=== PATIENT | female | born 1945 | race Caucasian/White ===

== ENCOUNTER → 2017-12-06 | Outpatient (CLI) | payer MEDICARE, OTHER ==
--- NOTE | 2017-12-06 14:09 | Diagnostic Imaging Report ---
PROCEDURE:ABDOMEN-1VIEW (KUB) TECHNIQUE:Supine AP abdomen INDICATION:Followup renal stone COMPARISON:[facility], DX, ABDOMEN-1VIEW (KUB), 07/12/2017, 9:33. Patients [facility], US, US RETROPERITONEAL ( KIDNEY )., 07/12/2017, 10:06. FINDINGS: See conclusion. CONCLUSION: 1. No calcifications over the kidneys or ureters. 2. Small left pelvic phleboliths. Costochondral calcifications not unexpected for patient age. 3. Normal bowel gas pattern. No evidence of organomegaly or ascites. Dictated by: Emir Walker M.D. on 12/06/2017 at 14:10 Electronically approved by: Emir Walker M.D. on 12/06/2017 at 14:10
== END ==
LOC: RAD 12:01
PROVIDERS: ATTEND Urology
DX: N20.0 Calculus of kidney (principal)
CPT/HCPCS: 74018

== ENCOUNTER → 2018-06-13 | Outpatient (CLI) | payer MEDICARE, OTHER ==
--- NOTE | 2018-06-13 13:46 | Diagnostic Imaging Report ---
Exam: KUB. Clinical History: Calculus of kidney Comparison: None Findings: Frontal view of the abdomen demonstrates a nonobstructive bowel gas pattern with moderate retained stool. Punctate calcifications are seen over the left kidney. Small calcifications are seen over the right kidney.No acute bone abnormality. Impression: Punctate calcifications are seen over the left kidney. Small calcifications are seen over the right kidney Signed by: Dr. Chris Mora M.D. on 06/13/2018 1:42 PM
== END ==
LOC: RAD 12:36
PROVIDERS: ATTEND Urology
DX: N20.0 Calculus of kidney (principal)
CPT/HCPCS: 74018

== ENCOUNTER → 2018-12-28 | Outpatient (CLI) | payer MEDICARE, OTHER ==
--- NOTE | 2018-12-28 15:12 | Diagnostic Imaging Report ---
Abdomen, 1 view. History: Renal calculus. Comparison: 06/13/2018. Findings: Air is scattered throughout nondilated small and large bowel. Calcifications are projected over both kidneys, measuring 5 mm on the right and 6 mm on the left, unchanged. There are no masses. The osseous structures are intact. IMPRESSION: Non-specific bowel gas pattern. Bilateral calcifications without change. Signed by: Júnior Gracia on 12/28/2018 3:08 PM
== END ==
LOC: RAD 14:34
PROVIDERS: ATTEND Urology
DX: N20.0 Calculus of kidney (principal)
CPT/HCPCS: 74018

== ENCOUNTER → 2019-01-12 | Outpatient (CLI) | payer MEDICARE, OTHER ==
--- NOTE | 2019-01-12 17:21 | Diagnostic Imaging Report ---
EXAM: CT ABDOMEN AND PELVIS without IV CONTRAST DATE: 01/12/2019 Time stamp on Exam: 1:42 PM INDICATION: Hematuria COMPARISON: None TECHNIQUE: The abdomen and pelvis were scanned using a multidetector helical scanner. Coronal and sagittal reformations were obtained. Low-dose renal stone protocol was utilized. Technique modification to maintain the lowest dose possible to the patient was accomplished. IV Contrast: None Oral Contrast: None Radiation Dose: Total DLP 235.81 mGy*cm Estimated effective dose: DLP x 0.015 x size factor FINDINGS: LOWER THORAX: No consolidations LIVER: No masses BILIARY: The gallbladder is unremarkable. No ductal dilatation. SPLEEN: No masses PANCREAS: No masses ADRENALS: No nodules KIDNEYS: No hydronephrosis. There is a 3-4 mm nonobstructing left upper pole renal stone. GI TRACT: No distention, wall thickening or evidence of obstruction. VESSELS: Scattered vascular calcification. PERITONEUM/RETROPERITONEUM: No free air or fluid LYMPH NODES: No lymphadenopathy REPRODUCTIVE ORGANS: Unremarkable BLADDER: Bladder appears unremarkable. Pelvic calcification likely represents phleboliths. SOFT TISSUES: Unremarkable BONES: No suspicious bone lesions. Degenerative changes of the spine. IMPRESSION: Nonobstructing small left upper pole renal stone. Signed by: Dr. Jonathan Guerra DO on 01/12/2019 5:18 PM
== END ==
LOC: CT 12:43
PROVIDERS: ATTEND Urology
DX: N20.0 Calculus of kidney (principal)
CPT/HCPCS: 74176

== ENCOUNTER → 2019-03-07 | Day surgery (SDC) | payer MEDICARE, OTHER ==
--- NOTE | 2019-02-26 15:03 | Diagnostic Imaging Report ---
EXAMINATION: CHEST 2 VIEWS INDICATION: Pre-operative COMPARISON: None FINDINGS: TUBES and LINES: None. LUNGS: The lungs are mildly hyperinflated. No focal consolidation or pulmonary edema. PLEURA: No pleural effusion or pneumothorax. HEART AND MEDIASTINUM: The cardiomediastinal silhouette is normal in size and contour. BONES AND SOFT TISSUES: No acute fracture or dislocation. Sclerotic osseous lesion at the proximal left humerus with ring and arc chondroid appearing matrix is likely clinically insignificant. UPPER ABDOMEN: No free air under the diaphragm. IMPRESSION: No focal pneumonia or pulmonary edema. Signed by: Maria De Jesus Ashby MD on 02/26/2019 2:59 PM
[2019-02-26 15:45] LABS: BASOPHILS % 0.5 % (0.0-1.0); EOSINOPHILS # (AUTO) 0.1 (0.0-0.4); HEMOGLOBIN 13.3 g/dL (12.0-16.0); LYMPHOCYTES # (AUTO) 1.1 (1.0-3.2); LYMPHOCYTES % 28.1 % (18.0-39.1); MEAN CORPUSCULAR HEMOGLOBIN 28.2 pg (28-32); MEAN CORPUSCULAR HGB CONC 32.4 g/dL (31-35); MONOCYTES # (AUTO) 0.3 (0.2-0.8); MONOCYTES % 6.4 % (4.4-11.3); NEUTROPHILS # (AUTO) 2.5 (2.1-6.9); NEUTROPHILS % 62.7 % (38.7-80.0); PLATELET COUNT 214 x10e3/uL (140-360); RED BLOOD COUNT 4.71 x10e6/uL (3.6-5.1); RED CELL DISTRIBUTION WIDTH 14.2 % (11.7-14.4)
[~2019-03-07] MED LIST: B&O 60MG R/S 60 MG SUPP PR ONE; CALCIUM; CEFTRIAXONE SOD 1 GM/NS 50 ML 50 ML IV ONE; DEXAMETHASONE SOD PHOS INJ 4 MG/ML VIAL ONE; EYE PROMISE OP; EYE PROMISE PO; GABAPENTIN300 MG PO; IOPAMIDOL 610MG/1ML 300 MG/ML VIAL IV ONE; LEVOTHYROXINE100 MC1 PO; LEXAPRO10 MG PO; LIDOCAINE HCL 2% LOCAL INJ 5 ML SDV VIAL INJ ONE; LORATADINE10 MG PO; MIDAZOLAM HCL 2 MG/2 ML VIAL ONE; MULTIVITAMINS1 EAC7; ONDANSETRON HCL INJ 2MG/ML 2ML 2 MG/ML VIAL ONE; OXYBUTYNIN CHLOR5 MG PO; PROPOFOL IV EMULSION 10 MG/ML 20 ML VIAL ONE; SEVOFLURANE INHAL SOLN 250 ML PEN BTL ONE; TURMERIC1 GM; VITAMIN C500 M4; VITAMIN D32000 UNI1
--- OUTSIDE RECORDS SUMMARY | 2019-03-07 05:11 | XMS REPORT | Clinical Summary ---
Author Author Ayala [facility] Organization [facility] Address Unknown Phone Unavailable Care Team Providers Care Drop Man Name Role Phone Kj Crump MD PCP Unavailable Allergies No Known Allergies Medications End Date Status Medication Sig Dispensed Refills Start Date Active escitalopram (LEXAPRO) 10 Take 10 mg by 0 MG tablet mouth daily. 5 Active oxybutynin (DITROPAN) 5 Take 5 mg by 3 MG tablet mouth 2 (two) 7 times a day. Active multivitamin (THERAGRAN) Take 1 tablet 0 tablet by mouth daily. Active gabapentin (NEURONTIN) Take 1,200 mg 0 600 mg tablet by mouth nightly. Active levothyroxine (SYNTHROID, Take 100 mcg 0 LEVOXYL) 100 mcg tablet by mouth. 9 03/31/2018 Discontinued levothyroxine (SYNTHROID, Take 1 tablet 30 tablet 0 LEVOXYL) 88 mcg tablet (88 mcg 8 total) by mouth daily for 30 days. 04/06/2018 acetaminophen-codeine Take 1-2 25 tablet 0 (TYLENOL WITH CODEINE #3) tablets by 8 300-30 mg per tablet mouth every 4 (four) hours as needed for moderate pain for up to 7 days. 04/29/2018 ondansetron (ZOFRAN) 4 MG Take 1 tablet 20 tablet 0 tablet (4 mg total) 8 by mouth every 8 (eight) hours as needed for nausea or vomiting for up to 30 days. 04/07/2018 acetaminophen-codeine Take 1 tablet 30 tablet 0 (TYLENOL WITH CODEINE #3) by mouth 8 300-30 mg per tablet every 4 (four) hours as needed for moderate pain for up to 7 days. 04/30/2018 docusate sodium (COLACE) Take 1 60 capsule 0 100 MG capsule capsule (100 8 mg total) by mouth 2 (two) times a day for 30 days. 04/30/2018 levothyroxine (SYNTHROID, Take 1 tablet 30 tablet 0 LEVOXYL) 88 mcg tablet (88 mcg 8 total) by mouth daily for 30 days. 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 Encounters Care Team Description Date Type Specialty Lynette Cooper MD Papanicolaou smear (Primary Dx); Screening for human papillomavirus; Screening for breast cancer 09/19/2018 Office Visit Obstetrics and Gynecology Rosendo Britt MD Postsurgical hypothyroidism (Primary Dx) 04/06/2018 Lab Lab Yohana Waterman NP 03/29/2018 Anesthesia Plastic Surgery Event Rosendo Britt MD RIGHT THYROID LOBECTOMY POSSIBLE TOTAL THYROIDECTOMY 03/29/2018 Surgery Plastic Surgery Rosendo Britt MD Nontoxic multinodular goiter 03/29/2018 [facility] General Internal Medicine - Encounter 03/31/2018 Rosendo Britt MD Preop testing (Primary Dx) 03/15/2018 Pre-Admit Pre-Admission Testing Testing Appointment after 03/06/2018 Family History Medical History Relation Name Comments Colon cancer Father Prostate cancer Father Heart disease Maternal Grandfather Lymphoma Mother Heart disease Paternal Grandfather Heart disease Paternal Grandmother Relation Name Status Comments Father Maternal Grandfather Mother Paternal Grandfather Paternal Grandmother Social History Date Tobacco Use Types Packs/Day Years Used Never Smoker Smokeless Tobacco: Never Used Alcohol Use Drinks/Week oz/Week Comments Yes 1 Standard 0.6 <1/WEEK drinks or equivalent Sex Assigned at Date Recorded Not on file Industry Job Start Date Occupation Not on file Not on file Not on file Travel End Travel History Travel Start No recent travel history available. Last Filed Vital Signs Time Taken Vital Sign Reading 09/19/2018 9:26 AM [employer] Blood Pressure 131/80 09/19/2018 9:26 AM [employer] Pulse 67 03/31/2018 7:56 AM CDT Temperature 37.1 C (98.8 F) 03/31/2018 7:56 AM CDT Respiratory Rate 16 03/31/2018 7:56 AM CDT Oxygen Saturation 95% - Inhaled Oxygen - Concentration 09/19/2018 9:26 AM [employer] Weight 59.4 kg (131 lb) 09/19/2018 9:26 AM [employer] Height 169.5 cm (5' 6.75") 09/19/2018 9:26 AM [employer] Body Mass Index 20.67 Plan of Treatment Health Maintenance Due Date Last Done Comments BREAST CANCER SCREENING 1995 COLONOSCOPY SCREENING 1995 65+ PNEUMOCOCCAL VACCINE 2010 (1 of 2 - PCV13) SHINGLES VACCINES (#2) 09/20/2018 07/20/2018 INFLUENZA VACCINE 03/08/2019 06/13/2012 Procedures Comments Procedure Name Priority Date/Time Associated Diagnosis HPV MRNA E6/E7 REFLEX TO Routine 09/19/2018 HPV 16, 18/45 9:55 AM [employer] THINPREP TIS PAP Routine 09/19/2018 Papanicolaou smear 9:55 AM [employer] CALCIUM LEVEL Routine 04/06/2018 Postsurgical 9:40 AM CDT hypothyroidism THYROID STIMULATING Routine 04/06/2018 Postsurgical HORMONE 9:40 AM CDT hypothyroidism CALCIUM LEVEL Routine 03/30/2018 2:52 AM CDT PARATHYROID HORMONE Routine 03/30/2018 2:42 AM CDT CALCIUM LEVEL Routine 03/29/2018 3:30 PM CDT PHOSPHORUS LEVEL Routine 03/29/2018 3:30 PM CDT ALBUMIN LEVEL Routine 03/29/2018 3:30 PM CDT PHOSPHORUS LEVEL Routine 03/29/2018 3:05 PM CDT PARATHYROID HORMONE Routine 03/29/2018 3:05 PM CDT CALCIUM LEVEL Routine 03/29/2018 3:05 PM CDT ALBUMIN LEVEL Routine 03/29/2018 3:05 PM CDT SURGICAL PATHOLOGY Routine 03/29/2018 REQUEST 2:16 PM CDT OR AN ELECTIVE Routine 03/29/2018 ENDOTRACHEAL AIRWAY 12:34 PM CDT Procedure Note - Emilia Edmondson, MOTOR VEHICLE LECTURER - 03/29/2018 12:34 PM CDT Airway Date/Time: 03/29/2018 10:36 AM Performed by: EMILIA EDMONDSON Authorized by: SEFERINO MCQUEEN Location: OR Urgency: Elective Difficult Airway: No Anesthesio logist: SEFERINO MCQUEEN Performed by: anesthesio logist and resident/C RNA/AA Preoxygena ba with 100% O2: Yes C-spine Precaution s Maintained Throughout : Yes Mask Ventilatio n: Easy mask Final Airway Type: Endotrache al airway Final Endotrache al Airway: ETT and reinforced tube Technique Used: Direct laryngosco py Devices/Me thods Used in Placement: Intubatin g stylet Insertion Site: Oral Blade Type: Marsh Laryngosco pe Blade/Vide olaryngosc ope Blade Size: 2 ETT Size (mm): 6.0 Measured from: Teeth ETT to Teeth (cm): 22 Placement Verified by: CO2 detection, direct visualizat ion and equal breath sounds Laryngosco pic view: Grade I - full view of glottis Rapid Sequence Induction (RSI): No Modified RSI: No Number of Attempts at Approach: 2 The surgical team requested after induction that their 4th year med student be allowed to participat e and learn in the mask ventilatio n and intubation of this patient. I have helped teach her on three previous patients. Verifying that they had informed patient that med students and residents would be part of her care we proceeded. The med student had some difficulty adjusting the laryngosco pe to lift the epiglottis before successful intubation . A small amount of blood was noted in the Marsh 2 blade and investigat ion with tongue depressor by Chief resident revealed small trauma to right side alveolar ridge, slight bleeding stopped with light pressure on gauze. MD SHERRI THYROIDECTOMY, TOTAL 03/29/2018 Nontoxic multinodular 9:35 AM CDT goiter Special Needs POSSIBLE EXTENDED RECOVERY NEEDED ECG PRE/POST OP Routine 03/15/2018 Preop testing 10:55 AM CDT ZZESTIMATED GFR Routine 03/15/2018 10:54 AM CDT COMPREHENSIVE METABOLIC Routine 03/15/2018 Preop testing PANEL 10:54 AM CDT HC COMPLETE BLD COUNT Routine 03/15/2018 Preop testing W/AUTO DIFF 10:54 AM CDT after 03/06/2018 Results * HPV mRNA E6/E7 REFLEX TO HPV 16, 18/45 (09/19/2018 9:55 AM [employer]) HPV mRNA e6/e7 Not Detected Not Detected [facility] Comment: DIAGNOSTICS This test was performed using [place] the APTIMA HPV Assay ([employer] This assay detects E6/E7 viral messenger RNA (mRNA) from 14 high-risk HPV types (16,18,31,33,35,39,45,51,52,56 ,58,59,66,68). The analytical performance characteristics of this assay have been determined by [employer]. The modifications have not been cleared or approved by the FDA. This assay has been validated pursuant to the CLIA regulations and is used for clinical purposes. Specimen Resulting Agency Comment Performing Organization Information: Site ID: [id number] Name: [facility] Address: [address] [place] [phone] Director: Myrna Garcia Performing Organization Address City/State/Zipcode Phone Number [facility] [place] [address] * THINPREP TIS PAP (09/19/2018 9:55 AM [employer]) Clinical None given [facility] information [employer] [place] Date of last NONE GIVEN [facility] menstrual DIAGNOSTICS period [place] Prev. pap: NONE GIVEN [employer] [place] Prev. bx: NONE GIVEN [facility] DIAGNOSTICS [place] Source None given [employer] [place] Statement of Comment: [facility] adequacy Satisfactory for evaluation. DIAGNOSTICS Endocervical/transformation [place] zone component absent. Interpretation/ Comment: [facility] result: Negative for intraepithelial DIAGNOSTICS lesion or malignancy. AYALA Atrophic pattern; predominantly parabasal cells Comment Comment: [facility] This Pap test has been DIAGNOSTICS evaluated with computer My Digital Shield technology. [employer] Comment: [facility] t JGM, CT(ASCP) DIAGNOSTICS CT screening location: [place] [address] Comment Comment: [facility] EXPLANATORY NOTE: DIAGNOSTICS The Pap is a screening test [place] for cervical cancer. It is not a diagnostic test and is subject to false negative and false positive results. It is most reliable when a satisfactory sample, regularly obtained, is submitted with relevant clinical findings and history, and when the Pap result is evaluated along with historic and current clinical information. Specimen Swab Resulting Agency Comment Performing Organization Information: Site ID: [id number] Name: [facility] Address: [address] [place] [id number] Director: Myrna Garcia Performing Organization Address City/[facility] [place] [place] [address] * Thyroid stimulating hormone (04/06/2018 9:40 AM CDT) TSH 1.13 0.27 - 4.20 uIU/mL [facility] DEPARTMENT OF PATHOLOGY AND GENOMIC MEDICINE Specimen Plasma specimen Performing Organization Address [facility] Phone Number [facility] [place] [address] PATHOLOGY AND [employer] [facility] * Calcium level (04/06/2018 9:40 AM CDT) Only the most recent of 4 results within the time period is included. Calcium 9.9 8.8 - 10.2 mg/dL [facility] DEPARTMENT OF PATHOLOGY AND GENOMIC MEDICINE Specimen Plasma specimen Performing Organization Address [facility] Phone Number [facility] [place] [address] PATHOLOGY AND [facility] * Parathyroid hormone (03/30/2018 2:42 AM CDT) Only the most recent of 2 results within the time period is included. PTH 37 15 - 65 pg/mL [facility] DEPARTMENT OF PATHOLOGY AND GENOMIC MEDICINE Specimen Blood Performing Organization Address [facility] Phone Number [facility] [place] [address] [facility] MEDICINE * Phosphorus level (03/29/2018 3:30 PM CDT) Only the most recent of 2 results within the time period is included. Phosphorus 3.2 2.4 - 4.5 mg/dL [facility] DEPARTMENT OF PATHOLOGY AND GENOMIC MEDICINE Specimen Plasma specimen Performing Organization Address [facility] Phone Number [facility] [place] [address] PATHOLOGY AND [employer] MEDICINE * Albumin level (03/29/2018 3:30 PM CDT) Only the most recent of 2 results within the time period is included. Pathologist [facility] Albumin 3.6 3.5 - 5.0 g/dL [facility] DEPARTMENT OF PATHOLOGY AND GENOMIC MEDICINE Specimen Plasma specimen Performing Organization Address City/[facility] Phone Number [facility] DEPARTMENT OF [address] [place] [address] PATHOLOGY AND GENOMIC MEDICINE * Surgical pathology request (03/29/2018 2:16 PM CDT) Pathologist [facility] DEPARTMENT OF PATHOLOGY AND GENOMIC MEDICINE Surgical See link below for PDF Lab [facility] DEPARTMENT pathology Report OF PATHOLOGY report AND GENOMIC MEDICINE Result status This is Final Report for [facility] DEPARTMENT [id number] OF PATHOLOGY AND GENOMIC MEDICINE Specimen Performing Organization Address [facility] Phone Number [facility] DEPARTMENT OF [address] [place] [address] PATHOLOGY AND GENOMIC MEDICINE * ECG Pre/Post Op (03/15/2018 10:55 AM CDT) Pathologist [facility] Ventricular 65 [facility] MUSE rate Atrial rate 65 [facility] MUSE OR interval 164 [facility] MUSE QRSD interval 80 [facility] MUSE QT interval 406 [facility] MUSE QTC interval 422 [facility] MUSE P axis 1 81 [facility] MUSE QRS axis 1 89 [facility] MUSE T wave axis 77 [facility] MUSE EKG impression Normal sinus rhythm-Normal [facility] MUSE ECG-No previous ECGs available- Specimen Performing Organization Address [facility] Phone Number [facility] [address] [place] [address] * Estimated GFR (03/15/2018 10:54 AM CDT) Pathologist [facility] GFR Non Af Amer 82 mL/min/1.73 m2 [facility] DEPARTMENT OF PATHOLOGY AND GENOMIC MEDICINE GFR Af Amer >90 mL/min/1.73 m2 [facility] DEPARTMENT Comment: OF PATHOLOGY Chronic kidney disease: <60 AND GENOMIC mL/min/1.73m2 MEDICINE Kidney failure: <15 mL/min/1.73m2 The estimated GFR is calculated from the IDMS-traceable Modification of Diet in Renal Disease Equation. The accuracy of the calculation is poor when the creatinine is normal. Calculated values >90 mL/min/1.73m2 are not reported. This equation has not been validated in children (<18 years), women, the elderly (>70 years), or ethnic groups other than Caucasians and Americans. Specimen Plasma specimen Performing Organization Address City/State/Zipcode Phone Number [address] [address] PATHOLOGY AND GENOMIC MEDICINE * CBC with platelet and differential (03/15/2018 10:54 AM CDT) [facility] Signature WBC 5.50 4.50 - 11.00 k/uL [facility] DEPARTMENT OF PATHOLOGY AND GENOMIC MEDICINE RBC 4.56 4.20 - 5.50 m/uL [facility] DEPARTMENT OF PATHOLOGY AND GENOMIC MEDICINE HGB 12.7 12.0 - 16.0 g/dL [facility] DEPARTMENT OF PATHOLOGY AND GENOMIC MEDICINE HCT 39.9 37.0 - 47.0 % [facility] DEPARTMENT OF PATHOLOGY AND GENOMIC MEDICINE MCV 87.5 82.0 - 100.0 fL [facility] DEPARTMENT OF PATHOLOGY AND GENOMIC MEDICINE MCH 27.9 27.0 - 34.0 pg [facility] DEPARTMENT OF PATHOLOGY AND GENOMIC MEDICINE MCHC 31.8 31.0 - 37.0 g/dL [facility] DEPARTMENT OF PATHOLOGY AND GENOMIC MEDICINE RDW - SD 43.6 37.0 - 55.0 fL [facility] DEPARTMENT OF PATHOLOGY AND GENOMIC MEDICINE MPV 10.6 8.8 - 13.2 fL [facility] DEPARTMENT OF PATHOLOGY AND GENOMIC MEDICINE Platelet count 233 150 - 400 k/uL [facility] DEPARTMENT OF PATHOLOGY AND GENOMIC MEDICINE Nucleated RBC 0.00 /100 WBC [facility] DEPARTMENT OF PATHOLOGY AND GENOMIC MEDICINE Neutrophils 74.7 (H) 39.0 - 69.0 % [facility] DEPARTMENT OF PATHOLOGY AND GENOMIC MEDICINE Lymphocytes 18.2 (L) 25.0 - 45.0 % [facility] DEPARTMENT OF PATHOLOGY AND GENOMIC MEDICINE Monocytes 4.9 0.0 - 10.0 % [facility] DEPARTMENT OF PATHOLOGY AND GENOMIC MEDICINE Eosinophils 1.5 0.0 - 5.0 % [facility] DEPARTMENT OF PATHOLOGY AND GENOMIC MEDICINE Basophils 0.5 0.0 - 1.0 % [facility] DEPARTMENT OF PATHOLOGY AND GENOMIC MEDICINE Immature 0.2Comment: "Immature 0.0 - 1.0 % [facility] DEPARTMENT granulocytes granulocytes" (promyelocytes, OF PATHOLOGY myelocytes, metamyelocytes) AND GENOMIC MEDICINE Specimen Blood Performing Organization Address City/State/Zipcode Phone Number [address] [address] PATHOLOGY AND GENOMIC MEDICINE * Comprehensive metabolic panel (03/15/2018 10:54 AM CDT) Sodium 141 135 - 148 mEq/L [facility] DEPARTMENT OF PATHOLOGY AND GENOMIC MEDICINE Potassium 4.3 3.5 - 5.0 mEq/L [facility] DEPARTMENT OF PATHOLOGY AND GENOMIC MEDICINE Chloride 102 98 - 112 mEq/L [facility] DEPARTMENT OF PATHOLOGY AND GENOMIC MEDICINE CO2 27 24 - 31 mEq/L [facility] DEPARTMENT OF PATHOLOGY AND GENOMIC MEDICINE Anion gap 12@ANIO 7 - 15 mEq/L [facility] DEPARTMENT OF PATHOLOGY AND GENOMIC MEDICINE BUN 15 8 - 23 mg/dL [facility] DEPARTMENT OF PATHOLOGY AND GENOMIC MEDICINE Creatinine 0.7 0.5 - 0.9 mg/dL [facility] DEPARTMENT OF PATHOLOGY AND GENOMIC MEDICINE Glucose 93 65 - 99 mg/dL [facility] DEPARTMENT OF PATHOLOGY AND GENOMIC MEDICINE Calcium 9.5 8.8 - 10.2 mg/dL [facility] DEPARTMENT OF PATHOLOGY AND GENOMIC MEDICINE Protein 6.9 6.3 - 8.3 g/dL [facility] DEPARTMENT Comment: OF PATHOLOGY Thermal AND GENOMIC 4.6-7.0 g/dL MEDICINE 1 week 4.4-7.6 g/dL 7 months-1year 5.1-7.3 g/dL 1-2 years5.6-7 .5 g/dL >3 years6.0-8 .0 g/dL 18-150 6.3-8.3 g/dL Albumin 3.6 3.5 - 5.0 g/dL [facility] DEPARTMENT OF PATHOLOGY AND GENOMIC MEDICINE A/G ratio 1.1 0.7 - 3.8 [facility] DEPARTMENT OF PATHOLOGY AND GENOMIC MEDICINE Alkaline 69 35 - 104 U/L [facility] DEPARTMENT phosphatase OF PATHOLOGY AND GENOMIC MEDICINE AST 22 10 - 35 U/L [facility] DEPARTMENT OF PATHOLOGY AND GENOMIC MEDICINE ALT 17 5 - 50 U/L [facility] DEPARTMENT OF PATHOLOGY AND GENOMIC MEDICINE Total bilirubin <0.2 0.0 - 1.2 mg/dL [facility] DEPARTMENT OF PATHOLOGY AND GENOMIC MEDICINE Specimen Plasma specimen Performing Organization Address City/State/Zipcode Phone Number [facility] DEPARTMENT OF [address] [place] [address] PATHOLOGY AND GENOMIC MEDICINE after 03/06/2018 Insurance Type Payer Benefit Subscriber ID Effective Phone Address Plan / Dates Group Medicare MEDICARE MEDICARE xxxxxxxxxxx 2010-P JAMIE, PART A AND resent [place] B Commercial [facility] MED xxxxxxxxxxxx 2011-P SUPPLEMENT resent Advance Directives Patient has advance care planning documents on file. For more information, lynnette churchill contact: Jamie Leong [address] [place] [address]
--- OUTSIDE RECORDS SUMMARY | 2019-03-07 05:11 | XMS REPORT ---
Author Author [facility] Address Unknown Phone Unavailable Care Team Providers Care Acid Crane Operator Name Role Phone CARLIN LEONE Unavailable Unavailable Payers Payer Name Policy Type Policy Number Effective Date Expiration Date Problems This patient has no known problems. Allergies, Adverse Reactions, Alerts Allergy Name Allergy Type Status Severity Reaction(s) Onset Date Inactive Date Treating Clinician Comments No Known Intolerances DA Active U 2010-05-01 00:00:00 Medications This patient has no known medications. Results Test Description Test Time Test Comments Text Results Atomic Results Result Comments CHEST 2 VIEWS 2019-02-26 14:57:00 [place] [address] Patient Name: MAGGI ANDUJAR MR #: [id number] : 1945 Age/Sex: 73/F Req #: [id number] Adm Physician: Ordered by: CARLIN LEONE MD Report #: [id number] Location: OR Room/Bed: Procedure: [id number] DX/CHEST 2 VIEWS Exam Date: 02/26/19 Exam Time: 1350 REPORT STATUS: Signed EXAMINATION: CHEST 2 VIEWS INDICATION: Pre-operative COMPARISON: None FINDINGS: TUBES and LINES: None. LUNGS: The lungs are mildly hyperinflated. No focal consolidation or pulmonary edema. PLEURA: No pleural effusion or pneumothorax. HEART AND MEDIASTINUM: The cardiomediastinal silhouette is normal in size and contour. BONES AND SOFT TISSUES: No acute fracture or dislocation. Sclerotic osseous lesion at the proximal left humerus with ring and arc chondroid appearing matrix is likely clinically insignificant. UPPER ABDOMEN: No free air under the diaphragm. IMPRESSION: No focal pneumonia or pulmonary edema. Signed by: Alexis Wise MD on 02/26/2019 2:59 PM Dictated By: ALEXIS WISE MD [id number] Transcribed By: OMAR on 02/26/19 7266 COPY TO: CARLIN LEONE MD CT ABDOMEN/PELVIS WO 2019-01-12 17:08:00 [place] [address] Patient Name: MAGGI ANDUJAR MR #: [id number] : 1945 Age/Sex: 73/F Req #: [id number] Adm Physician: Ordered by: CARLIN LEONE MD Report #: [id number] Location: CT Room/Bed: Procedure: [id number] CT/CT ABDOMEN/PELVIS WO Exam Date: 01/12/19 Exam Time: 1322 REPORT STATUS: Signed EXAM: CT ABDOMEN AND PELVIS without IV CONTRAST DATE: 01/12/2019 Time stamp on Exam: 1:42 PM INDICATION: Hematuria COMPARISON: None TECHNIQUE: The abdomen and pelvis were scanned using a multidetector helical scanner. Coronal and sagittal reformations were obtained. Low-dose renal stone protocol was utilized. Technique modification to maintain the lowest dose possible to the patient was accomplished. IV Contrast: None Oral Contrast: None Radiation Dose: Total DLP 235.81 mGy*cm Estimated effective dose: DLP x 0.015 x size factor FINDINGS: LOWER THORAX: No consolidations LIVER: No masses BILIARY: The gallbladder is unremarkable. No ductal dilatation. SPLEEN: No masses PANCREAS: No masses ADRENALS: No nodules KIDNEYS: No hydronephrosis. There is a 3-4 mm nonobstructing left upper pole renal stone. GI TRACT: No distention, wall thickening or evidence of obstruction. VESSELS: Scattered vascular calcification. PERITONEUM/RETROPERITONEUM: No free air or fluid LYMPH NODES: No lymphadenopathy REPRODUCTIVE ORGANS: Unremarkable BLADDER: Bladder appears unremarkable. Pelvic calcification likely represents phleboliths. SOFT TISSUES: Unremarkable BONES: No suspicious bone lesions. Degenerative changes of the spine. IMPRESSION: Nonobstructing small left upper pole renal stone. Signed by: Dr. Jonathan Guerra DO on 01/12/2019 5:18 PM Dictated By: JONATHAN GUERRA DO 17 Transcribed By: OMAR on 01/12/191717 COPY TO: CARLIN LEONE MD ABDOMEN-1VIEW (KUB) 2018-12-28 15:06:00 [place] [address] Patient Name: MAGGI ANDUJAR MR #: [id number] : 1945 Age/Sex: 73/F Req #: [id number] Adm Physician: Ordered by: CARLIN LEONE MD Report #: [id number] Location: [facility] Room/Bed: Procedure: [id number] DX/ABDOMEN-1VIEW (KUB) Exam Date: 12/28/18 Exam Time: 1430 REPORT STATUS: Signed Abdomen, 1 view. History: Renal calculus. Comparison: 06/13/2018. Findings: Air is scattered throughout nondilated small and large bowel. Calcifications are projected over both kidneys, measuring 5 mm on the right and 6 mm on the left, unchanged. There are no masses. The osseous structures are intact. IMPRESSION: Non-specific bowel gas pattern. Bilateral calcifications without change. Signed by: Júnior Gracia on 12/28/2018 3:08 PM Dictated By: JÚNIOR GRACIA MD 1508 Transcribed By: OMAR on 12/28/18 1508 COPY TO: CARLIN LEONE MD ABDOMEN-1VIEW (KUB) 2018-06-13 13:40:00 [place] [address] Patient Name: MAGGI ANDUJAR MR #: [id number] : 1945 Age/Sex: 72/F Req #: [id number] Adm Physician: Ordered by: CARLIN LEONE MD Report #: [id number] Location: [facility] Room/Bed: Procedure: [id number] DX/ABDOMEN-1VIEW (KUB) Exam Date: Exam Time: REPORT STATUS: Signed Exam: KUB. Clinical History: Calculus of kidney Comparis on: None Findings: Frontal view of the abdomen demonstrates a nonobstructive bowel gas pattern with moderate retained stool. Punctate calcifications are seen over the left kidney. Small calcifications are seen over the right kidney.No acute bone abnormality. Impression: Punctate calcifications are seen over the left kidney. Small calcifications are seen over the right kidney Signed by: Dr. Shravan Mora M.D. on 06/13/2018 1:42 PM Dictated By: SHRAVAN MORA MD, MD 1342 Transcribed By: OMAR on 06/13/18 1342 COPY TO: CARLIN LEONE MD ABDOMEN-1VIEW (KUB) [place] [address] Patient Name: MAGGI ANDUJAR MR #: [id number] : 1945 Age/Sex: 72/F Req #: [id number] Adm Physician: Ordered by: CARLIN LEONE MD Report #: [id number] Location: [facility] Room/Bed: Procedure: [id number] DX/ABDOMEN-1VIEW (KUB) Exam Date: 12/06/17 Exam Time: 1300 REPORT STATUS: Signed PROCEDURE: ABDOMEN-1VIEW (KUB) TECHNIQUE: Supine AP abdomen INDICATION: Followup renal stone COMPARISON: [facility], , ABDOMEN-1VIEW (KUB), 07/12/2017, 9:33. [facility], US, US RETROPERITONEAL ( KIDNEY )., 07/12/2017, 10:06. FINDINGS: See conclusion. CONCLUSION: 1. No calcifications over the kidneys or ureters. 2. Small left pelvic phleboliths. Costochondral calcifications not unexpected for patient age. 3. Normal bowel gas pattern. No evidence of organomegaly or ascites. Dictated by: Zabrina Walker M.D. on 12/06/2017 at 14:10 Electronically approved by: Zabrina Walker M.D. on 12/06/2017 at 14:10 Dictated By: ZABRINA WALKER MD 1410 Transcribed By: SORAYA on 12/06/17 1410 COPY TO: CARLIN LEONE MD US RENAL RETROPERITONEAL COMP [place] [address] Patient Name: MAGGI ANDUJAR MR #: [id number] : 1945 Age/Sex: 71/F Req #: [id number] Adm Physician: Ordered by: CARLIN LEONE MD Report #: [id number] Location: Room/Bed: Procedure: [id number] US/US RENAL RETROPERITONEAL COMP Exam Date: 07/12/17 Exam Time: 1006 REPORT STATUS: Signed PROCEDURE: US RETROPERITONEAL ( KIDNEY ). COMPARISON: None. INDICATIONS: HEMATURIA, F/U CYST TECHNIQUE: Davis-scale and color sonographic images of the bilateral kidneys and bladder where obtained in transverse and longitudinal planes. FINDINGS: RIGHT KIDNEY: 9.9 cm, cortex 1.4 cm Cysts: 1.0 x 0.9 x 1.0 cm cystic, anechoic lesion in the mid lateral aspect Solid masses: None Stones: None Hydronephrosis: None Echogenicity: Normal LEFT KIDNEY: 10.0 cm, cortex 1.9 cm Cysts: None Solid masses: None Stones: None Hydronephrosis: None Echogenicity: Normal Bladder: No focal lesions. Bilateral ureteral jets are identified. No wall thickening. CONCLUSION: 1. 1.0 cm simple cyst in the right kidney. Otherwise, unremarkable exam. No stones, or hydronephrosis are identified. Chris Okeefe M.D. Dictated by: Chris Okeefe M.D. on 07/12/2017 at 15:52 Electronically approved by: Chris Okeefe M.D. on 07/12/2017 at 15:52 Dictated By: CHRIS OKEEFE MD 51 Transcribed By: SORAYA on 07/12/171551 COPY TO: CARLIN LEONE MD ABDOMEN-1VIEW (KUB) [place] [address] Patient Name: MGAGI ANDUJAR MR #: [id number] : 1945 Age/Sex: 71/F Req #: [id number] Adm Physician: Ordered by: CARLIN LEONE MD Report #: [id number] Location: Room/Bed: Procedure: [id number] DX/ABDOMEN-1VIEW (KUB) Exam Date: 07/12/17 Exam Time: 0945 REPORT STATUS: Signed PROCEDURE: X-RAY ABDOMEN - KUB COMPARISON: CT urogram 06/24/2016. INDICATIONS: CALCULUS OF THE KIDNEY FINDINGS: The bowel gas pattern shows no dilated, air-filled loops of bowel. Gas and fecal material is noted throughout the large bowel which obscures the renal shadows. No calcifications project over the renal shadows, expected ureteral courses, or urinary bladder. Left pelvic phleboliths are unchanged compared to prior CT. Previously described nonobstructing left upper pole renal calculus is not identified by plain radiography. Regional skeletal structures are intact. CONCLUSION: No plain film evidence of urolithiasis. Nonobstructing left upper pole renal calculus described on the comparison CT urogram is not identified by plain radiography. Dictated by: Jesenia Castillo M.D. on 07/12/2017 at 10:18 Electronically approved by: Jesenia Castillo M.D. on 07/12/2017 at 10:18 Dictated By: JESENIA CASTILLO MD 1018 Transcribed By: SORAYA on 07/12/17 1018 COPY TO: CARLIN LEONE MD
--- OUTSIDE RECORDS SUMMARY | 2019-03-07 05:11 | XMS REPORT | Clinical Summary ---
Author Author [facility] Address Unknown Phone Unavailable Care Team Providers Care Temporary Receptionist Name Role Phone Pcp, No PCP Unavailable Allergies No Known Allergies Medications Not on file Active Problems Not on file Social History Date Tobacco Use Types Packs/Day Years Used Never Assessed Sex Assigned at Date Recorded Not on file Industry Job Start Date Occupation Not on file Not on file Not on file Travel End Travel History Travel Start No recent travel history available. Last Filed Vital Signs Not on file Plan of Treatment Not on file Results Not on fileafter 03/06/2018 Insurance Payer Benefit Subscriber ID Type Phone Address Plan / Group MEDICARE MEDICARE A xxxxxxxxxxx Medicare B [facility] x[facility]xxx [facility]
--- NOTE | 2019-03-07 06:47 | Diagnostic Imaging Report ---
EXAM: Abdomen 1 Views INDICATION: Renal stone COMPARISON: Abdominal CT 01/12/2019 FINDINGS: Normal volume of stool in the colon. No dilated loops of small bowel. The left renal calculus seen on abdominal CT 02/24/2019 is not identifiable on this radiograph. No abnormal soft tissue masses. Mild degenerative changes in the lumbar spine and pelvis. IMPRESSION: No acute intra-abdominal abnormalities. Signed by: Daniel Reyes DO on 03/07/2019 6:44 AM
[2019-03-07 09:25] VITALS: BP 137/78
--- NOTE | 2019-05-04 04:53 | Operative Report ---
DATE OF PROCEDURE: 03/07/2019 SURGEON: Yaw Longoria MD PREOPERATIVE DIAGNOSES: 1. Left nephrolithiasis. 2. Microscopic hematuria. POSTOPERATIVE DIAGNOSES: 1. Left nephrolithiasis. 2. Microscopic hematuria. 3. Minimal rectus cystocele. 4. Grade 2 rectocele. 5. Atrophic (senile) vaginitis. OPERATIONS PERFORMED: 1. Left-sided extracorporeal shockwave lithotripsy (separate procedure performed for the left upper pole nephrolithiasis). 2. Cystourethroscopy with bilateral ureteral catheterizations and retrograde ureteropyelography (separate procedure performed for the microhematuria). 3. Interpretation of retrograde ureteropyelography. 4. Supervision of fluoroscopy, no radiologist present. ANESTHESIA: General. COMPLICATIONS: None. CLINICAL SUMMARY: Karen Noel is a 73-year-old woman with left upper pole nephrolithiasis. The patient wants ESWL in order to fragment the stone, even though it is relatively small. The patient does not want to pass stone of the current size in hopes of avoiding any significant pain. She is aware of the risks of bleeding, infection, injury to adjacent structures, need for additional procedures, and elected to proceed. Due to the literature the patient has read, she is afraid of recurrent anticholinergic medication due to dementia and she desires change to a prescription such as Myrbetriq. OPERATIVE PROCEDURE IN DETAIL: Informed consent was verified. Karen Noel was properly identified, taken to the operating room, and placed on the lithotripsy table in supine position. Anesthesia was uneventfully begun. The patient's left upper pole 5 mm stone was localized with biplanar fluoroscopy. A total of 3000 shocks were delivered with excellent fragmentation. The patient was then carefully gently repositioned in dorsal lithotomy position with all pressure points well padded. Her genitalia were prepared and draped in usual sterile fashion. The cystoscope sheath with obturator in place was atraumatically inserted into the patient's urethra and bladder was drained. Panendoscopy of the bladder revealed no suspicious mucosal lesions, no tumors, no stones, and no diverticula. Normally positioned configured ureteral orifices were identified. A ureteral catheter was used to cannulate each ureter and retrograde ureteropyelogram was performed. Interpretation of retrograde ureteropyelography; contrast was instilled in a retrograde fashion bilaterally. There was a filling defect in the left upper pole corresponding to stone fragments as well as blood clots from the lithotripsy. Otherwise, there were no tumors, no stones, no diverticula. There was no hydronephrosis. Unobstructed drainage was observed bilaterally fluoroscopically. The patient's bladder was then drained and cystoscope was withdrawn. Pelvic examination revealed a minimal, less than grade 1 cystocele, there was a grade 2 rectocele, there was atrophic (senile) vaginitis. No abnormal palpable pelvic masses could be appreciated. There were no obvious mucosal lesions. The patient was then uneventfully reversed from anesthesia and taken to recovery room in stable condition. Explicit postop instructions were given. We will follow the patient up in the office. MD MAHESH Martin/NEISHA /[id number]
== END | disposition home or self-care (01) ==
LOC: OR 05:08
PROVIDERS: ATTEND Urology
DX: N20.0 Calculus of kidney (principal); N81.10 Cystocele, unspecified; N81.6 Rectocele; N95.2 Postmenopausal atrophic vaginitis; E03.9 Hypothyroidism, unspecified; F41.9 Anxiety disorder, unspecified; Z01.810 Encounter for preprocedural cardiovascular examination; Z01.812 Encounter for preprocedural laboratory examination; Z01.818 Encounter for other preprocedural examination
CPT/HCPCS: 36415; 50590; 71046; 74018; 85025; 93005; C1758; J0696; J1100; J2001; J2250; J2405; J2704; Q9967

== ENCOUNTER → 2019-07-24 | Outpatient (CLI) | payer MEDICARE, OTHER ==
[~2019-07-24] MED LIST changes: -B&O 60MG R/S 60 MG SUPP PR ONE; -CEFTRIAXONE SOD 1 GM/NS 50 ML 50 ML IV ONE; -DEXAMETHASONE SOD PHOS INJ 4 MG/ML VIAL ONE; -IOPAMIDOL 610MG/1ML 300 MG/ML VIAL IV ONE; -LIDOCAINE HCL 2% LOCAL INJ 5 ML SDV VIAL INJ ONE; -MIDAZOLAM HCL 2 MG/2 ML VIAL ONE; -ONDANSETRON HCL INJ 2MG/ML 2ML 2 MG/ML VIAL ONE; -PROPOFOL IV EMULSION 10 MG/ML 20 ML VIAL ONE; -SEVOFLURANE INHAL SOLN 250 ML PEN BTL ONE
--- NOTE | 2019-07-24 10:53 | Diagnostic Imaging Report ---
EXAM: ABDOMEN-1VIEW (KUB) DATE: 07/24/2019 9:20 AM INDICATION: Calculus of kidney COMPARISON: 03/07/2019 FINDINGS: Bowel gas pattern is nonobstructive. Bowel gas and fecal matter partially obscures renal shadows. No obvious renal calculus or abnormal intra-abdominal calcification is appreciated on this examination. Stable phlebolith noted within the pelvis. Degenerative changes noted of the visualized spine. No acute osseous abnormalities identified. IMPRESSION: No radiographically evident renal calculus appreciated. Signed by: Dr. Galindo Reyes MD on 07/24/2019 10:50 AM
== END ==
LOC: RAD 09:08
PROVIDERS: ATTEND Urology
DX: N20.0 Calculus of kidney (principal)
CPT/HCPCS: 74018